=== PATIENT | female | born 1995 | race Caucasian/White ===

== ENCOUNTER 2017-10-13 10:40 | Emergency (ER) | payer OTHER ==
[~2017-10-13] VITALS: Ht 170.2 cm; Wt 77.1 kg
[~2017-10-13 10:40] MED LIST: BIRTH CONTROL; IRON325 M1 PO; PRENATAL-FOLIC1 EACH PO; TYLENOL325 MG PO; ZOFRAN ODT4 MG SL; ZOFRAN ODT8 MG PO; ZOLOFT50 MG PO
--- OUTSIDE RECORDS SUMMARY | 2017-10-13 11:39 | XMS | Clinical Summary ---
Demographics + + + | Address | [address] | | | [place] [address] | + + + | Home Phone | | + + + | Preferred Language | Unknown | + + + | Marital Status | Unknown | + + + | Scientology Affiliation | Unknown | + + + | Race | Unknown | + + + | Ethnic Group | Other Race | + + + Author + + + | Author | NON REVENUE LOCATIONS | + + + | Organization | NON REVENUE LOCATIONS | + + + | Address | Unknown | + + + | Phone | Unavailable | + + + Care Team Providers + +------+ + | Care Modeling Manager Name | Role | Phone | + +------+ + PP | Unavailable | + +------+ + Source Comments DAVID is fully live on both [facility] Ambulatory and [facility] InPatient.[facility] Allergies Not on File Current Medications Not on file Active Problems Not on file Social History + +-------+ +--------+------+ | Tobacco Use | Types | Packs/Day | Years | Date | | | | | Used | | + +-------+ +--------+------+ | Never Assessed | | | | | + +-------+ +--------+------+ + + + | Sex Assigned at | Date Recorded | | | | + + + | Not on file | | + + + Plan of Treatment + + + + + | Health Maintenance | Due Date | Last Done | Comments | + + + + + | INFLUENZA VACCINE | | | | | (FLU SHOT) | 7 | | | + + + + + Results Not on filefrom Last 3 Months"
== END 2017-10-13 13:15 | disposition home or self-care (01) ==
LOC: ED 10:40
DX: B37.3 Candidiasis of vulva and vagina (principal); L30.9 Dermatitis, unspecified; Z88.0 Allergy status to penicillin
CPT/HCPCS: 81001; 84703; 87210; 87491; 87591; 99284

== ENCOUNTER 2019-04-07 14:03 | Emergency (ER) | payer OTHER ==
[~2019-04-07] VITALS: Ht 170.2 cm; Wt 77.1 kg
--- OUTSIDE RECORDS SUMMARY | ~2019-04-07 | XMS | Clinical Summary ---
Demographics + + + | Address | [address] | | | [place] [address] | + + + | Home Phone | | + + + | Preferred Language | Unknown | + + + | Marital Status | Unknown | + + + | Hoahaoism Affiliation | Unknown | + + + [...] Team Providers + +------+ + | Care Edge Burnisher Name | Role | Phone | + +------+ + PP | Unavailable | + +------+ + Source Comments DAVID is fully live on both [facility] Ambulatory and [facility] InPatient.[facility] Allergies Not on File Medications Not on [...]
--- OUTSIDE RECORDS SUMMARY | ~2019-04-07 | XMS | Clinical Summary ---
Demographics + + + | Address | [address] | | | [place] [address] | + + + | Home Phone | | + + + | Preferred Language | Unknown | + + + | Marital Status | Unknown | + + + | Latter Day Affiliation | Unknown | + + + [...] Team Providers + +------+ + | Care Manager Photo Name | Role | Phone | + +------+ + PP | Unavailable | + +------+ + Source Comments DAVID is fully live on both [facility] Ambulatory and [facility] InPatient.[facility] Allergies Not on File Medications Not on [...]
--- OUTSIDE RECORDS SUMMARY | ~2019-04-07 | XMS | Encounter Summary ---
Demographics + + + | Address | [address] | | | [place] [address] | + + + | Home Phone | | + + + | Preferred Language | Unknown | + + + | Marital Status | Unknown | + + + | Congregational Affiliation | Unknown | + + + | Race | Unknown | + + + | Ethnic Group | Other Race | + + + Author + + + | Author | [facility] | + + + | Organization | [facility] | + + + | Address | Unknown | + + + | Phone | Unavailable | + + + Care Team Providers + +------+ + | Care Fire Crew Specialist Name | Role | Phone | + +------+ + PCP | Unavailable | + +------+ + Encounter Details +--------+ + + + + | Date | Type | Department | Care Team | Description | +--------+ + + + + | 08/01/ | Outside | Neurophysiology | Puja Fleming, | | | 2009 | Referral | EEG at [facility] [address] | DE[place]OR[place] | | | | Order | [facility] | [facility] [address] | | | | | Road Mailcode: | [address] [place], | | | | | [address] | [place] [address] | | | | | [facility] | [phone] | | | | | [place], [place] | | | | | | [address] | | | | | | [phone] | | | +--------+ + + + [...] | | | ROUTINE EEG done at [facility] History: Patient is a 14yo | | [...] | Neurophysiology - EEG [address] [facility] | | | [place] [address] | | + + + documented in this encounter Visit Diagnoses Not on filedocumented in this encounter
--- OUTSIDE RECORDS SUMMARY | ~2019-04-07 | XMS | Encounter Summary ---
Demographics + + + | Address | [address] | | | [place] [address] | + + + | Home Phone | | + + + | Preferred Language | Unknown | + + + | Marital Status | Unknown | + + + | Yazidi Affiliation | Unknown | + + + | Race | Unknown | + + + | Ethnic Group | Other Race | + + + Author + + + | Author | [facility] | + + + | Organization | [facility] | + + + | Address | Unknown | + + + | Phone | Unavailable | + + + Care Team Providers + +------+ + | Care Bath Steward Name | Role | Phone | + +------+ + PCP | Unavailable | + +------+ + Encounter Details +--------+ + + + + | Date | Type | Department | Care Team | Description | +--------+ + + + + | 08/01/ | Outside | Neurophysiology | Puja Fleming, | | | 2009 | Referral | EEG at [facility] [address] | [place] | | | | Order | [facility] | [facility] [address] | | | | | Road Mailcode: | [address] [place], | | | | | [address] | [place] [address] | | | | | [facility] | [phone] | | | | | [place], [place] | | | | | | [address] | | | | | | [phone] | | | +--------+ + + + [...] | | | ROUTINE EEG done at [facility] History: Patient is a 14yo | [...] | Neurophysiology - EEG [address] [facility] | | | [place] [address] | | + + + documented in this encounter Visit Diagnoses Not on filedocumented in this encounter
--- OUTSIDE RECORDS SUMMARY | 2019-04-07 14:06 | XMS ---
PreManage Notification: DODIE TRAMMELL Security Product Operations Associate Events No recent Security Events currently on file [facility] There are no care providers on record at this time. Noemy has no Care Guidelines for this patient. Jose VISIT COUNT (12 MO.) 1 [facility] TOTAL 1 NOTE: Visits indicate total known visits. ED/UCC VISIT TRACKING (12 MO.) 04/07/2019 14:03 [facility] [place] TYPE: Emergency COMPLAINT: - ABD PAIN INPATIENT VISIT TRACKING (12 MO.) No inpatient visits to display in this time frame [email or web address]
[2019-04-07] MEDS ORDERED: ADVIL200 MG (14:20)
== END 2019-04-07 16:27 | disposition home or self-care (01) ==
LOC: ED 14:03
DX: R10.32 Left lower quadrant pain (principal); Z88.0 Allergy status to penicillin; Z79.899 Other long term (current) drug therapy
CPT/HCPCS: 76830; 76856; 81001; 84703; 85025; 96374; 99284-25; J1885

== ENCOUNTER 2019-05-03 11:28 | Emergency (ER) | payer OTHER ==
[~2019-05-03] VITALS: Ht 167.6 cm; Wt 79.4 kg
--- OUTSIDE RECORDS SUMMARY | ~2019-05-03 | XMS | Clinical Summary ---
Demographics + + + | Address | [address] | | | [place] [address] | + + + | Home Phone | | + + + | Preferred Language | Unknown | + + + | Marital Status | Unknown | + + + | Druze Affiliation | Unknown | + + + [...] Team Providers + +------+ + | Care Associate Name | Role | Phone | + +------+ + PP | Unavailable | + +------+ + Source Comments DAVID is fully live on both [facility] Ambulatory and [facility] InPatient.[facility]] Allergies Not on File Medications Not on file Active Problems Not [...] on file | | + + + + + + + | Job Start Date | Occupation | Industry | + + + + | Not on file | Not on file | Not on file | + + + + + + + + | Travel History | Travel Start | Travel End | + + + + + + | No recent travel history available. | + + Plan of Treatment + + + + + | Health Maintenance | Due Date | Last Done | Comments | + + + + + | Influenza (Flu) | | | | | vaccination (Season | 9 | | | | Ended) | | | | + + + + + | Pneumococcal | Aged Out | | No longer eligible | | vaccination | | | based on patient's | | | | | age to complete this | | | | | topic | + + + + + Results Not on filefrom Last 3 Months"
--- OUTSIDE RECORDS SUMMARY | ~2019-05-03 | XMS | Encounter Summary ---
Demographics + + + | Address | [address] | | | [place] [address] | + + + | Home Phone | | + + + | Preferred Language | Unknown | + + + | Marital Status | Unknown | + + + | Oriental Orthodox Affiliation | Unknown | + + + | Race | Unknown | + + + | Ethnic Group | Other Race | + + + Author + + + | Author | [facility] | + + + | Organization | [facility] | + + + | Address | Unknown | + + + | Phone | Unavailable | + + + Care Team Providers + +------+ + | Care Getter Operator Name | Role | Phone | + +------+ + PCP | Unavailable | + +------+ + Encounter Details +--------+ + + + + | Date | Type | Department | Care Team | Description | +--------+ + + + + | 08/01/ | Outside | Neurophysiology | Puja Fleming, | | | 2009 | Referral | EEG at [facility] [address] | [place] | | | | Order | [facility] | [facility] [address] | | | | | Road Mailcode: | [address] [place], | | | | | [address] | [place] [address] | | | | | [facility] | [phone] | | | | | [place], [place] | | | | | | [address] | | | | | | [phone] | | | +--------+ + + + + Social History + +-------+ +--------+------+ | Tobacco [...] recent travel history available. | + + documented as of this encounter Plan of Treatment Not on filedocumented as of this encounter Procedures + +--------+ + + + | Procedure Name | Priori | Date/Time | Associated Diagnosis | Comments | | | ty | | | | + +--------+ + + + | EEG ROUTINE, PEDS | Routin | 08/01/2010 | | Results for this | | | e | | | procedure are in the | | | | | | results section. | + +--------+ + + + documented in this encounter Results EEG ROUTINE, PEDS (08/01/2010) + + | Specimen | + + | | + + + + + | Narrative | Performed At | + + + | Patient Name: Fish Larson Date of : 1995 | | | Date of Test: 08/01/2010 | | | ROUTINE EEG done at [facility] History: Patient is a 14yo | | | female with history of "black out" spells for many years, now | | | worsening. EEG is performed to evaluate for evidence of seizure | | | activity. Conditions of recording: With the patient awake, an | | | EEG was recorded using 32 channels in a digital acquisition system. | | | Electrodes were placed according to the international 10-20 | | | system. The recording was technically satisfactory. Description | | | of recording: During the best awake state, a symmetric and reactive | | | 10 Hz posterior dominant rhythm of moderate amplitude is | | | seen. Lower amplitude faster frequencies are present symmetrically | | | in the anterior head regions. Hyperventilation and photic | | | stimulation did not induce any significant changes in the EEG. | | | Sleep was not reached in this recording. No focal abnormalities or | | | epileptiform discharges were seen. Impression: This is a | | | normal EEG with the patient awake. Comment: A normal EEG does | | | not rule out a clinical seizure disorder. If clinical suspicion | | | for epilepsy is high, a repeat EEG after sleep deprivation is | | | recommended. Clinical correlation is advised. ELENA MONSON MD | | | Neurophysiology - EEG [address] [facility] | | | [place] [address] | | + + + documented in this encounter Visit Diagnoses Not on filedocumented in this encounter
--- OUTSIDE RECORDS SUMMARY | ~2019-05-03 | XMS | Encounter Summary ---
Demographics + + + | Address | [address] | | | [place] [address] | + + + | Home Phone | | + + + | Preferred Language | Unknown | + + + | Marital Status | Unknown | + + + | Yazdanism Affiliation | Unknown | + + + | Race | Unknown | + + + | Ethnic Group | Other Race | + + + Author + + + | Author | [facility] | + + + | Organization | [facility] | + + + | Address | Unknown | + + + | Phone | Unavailable | + + + Care Team Providers + +------+ + | Care Delicatessen Manager Name | Role | Phone | + +------+ + PCP | Unavailable | + +------+ + Encounter Details +--------+ + + + + | Date | Type | Department | Care Team | Description | +--------+ + + + + | 08/01/ | Outside | Neurophysiology | Puja Fleming, | | | 2009 | Referral | EEG at [facility] [address] | [place] | | | | Order | [facility] | [facility] [address] | | | | | Road Mailcode: | [address] [place], | | | | | [address] | [place] [address] | | | | | [facility] | [phone] | | | | | [place], [place] | | | | | | [address] | | | | | | [phone] | | | +--------+ + + + [...] | | | ROUTINE EEG done at [facility] History: Patient is a 14yo | [...] | Neurophysiology - EEG [address] [facility] | | | [place] [address] | | + + + documented in this encounter Visit Diagnoses Not on filedocumented in this encounter
--- OUTSIDE RECORDS SUMMARY | ~2019-05-03 | XMS | Clinical Summary ---
Demographics + + + | Address | [address] | | | [place] [address] | + + + | Home Phone | | + + + | Preferred Language | Unknown | + + + | Marital Status | Unknown | + + + | Confucianist Affiliation | Unknown | + + + [...] Team Providers + +------+ + | Care Quartz Miner Name | Role | Phone | + +------+ + PP | Unavailable | + +------+ + Source Comments DAVID is fully live on both [facility] Ambulatory and [facility] InPatient.[facility] & [facility] Allergies Not on File Medications Not on [...]
[~2019-05-03 11:28] MED LIST changes: +ADVIL200 MG
--- OUTSIDE RECORDS SUMMARY | 2019-05-03 11:32 | XMS ---
PreManage Notification: DODIE TRAMMELL Security Nuclear Physician Events No recent Security Events currently on file CRITERIA MET - [facility] - Has Care Guidelines - PDMP - [facility] - 2 Visits in 30 Days CARE PROVIDERS There are no care providers on record at this time. Noemy has no Care Guidelines for this patient. Care History Medical/Surgical 04/12/2019 [facility] [place] CASE MANAGEMENT REFERRAL MADE- HELP PATIENT WITH PCP SET UP. E.D. VISIT COUNT (12 MO.) 2 [facility] H. TOTAL 2 NOTE: Visits indicate total known visits. ED/UCC VISIT TRACKING (12 MO.) 05/03/2019 11:29 [facility] [place] TYPE: Emergency COMPLAINT: - PREVIOUS CHEST PAIN/SOB 04/07/2019 14:03 [facility] [place] TYPE: Emergency COMPLAINT: - ABD PAIN DIAGNOSES: - Other ocean transportation intermediary (current) drug therapy - Left lower quadrant pain - Allergy status to penicillin INPATIENT VISIT TRACKING (12 MO.) No inpatient visits to display in this time frame [email or web address]
[2019-05-03] MEDS ORDERED: CLEOCIN HCL300 MG PO (11:38)
[2019-05-03] MEDS ORDERED: IBUPROFEN600 MG PO (11:39)
[2019-05-03] MEDS ORDERED: NORCO 5-325 TA1 EACH PO (11:39)
--- NOTE | 2019-05-04 07:40 | EKG ---
[facility] [address] [facility] [place] [address] Signed Normal sinus rhythm with sinus arrhythmia Incomplete right bundle branch block Borderline ECG No previous ECGs available Confirmed by JANIE SORENSEN MD ([id number]) on 05/04/2019 7:40:23 AM Electronically Signed By: JANIE SORENSEN MD 05/04/19 0740 PATIENT NAME: VALERIDODIE Centeno Electrocardiogram DATE OF : [birth year] PHYSICIAN: JANIE SORENSEN MD REPORT #: [id number] REPORT IS CONFIDENTIAL AND NOT TO BE RELEASED WITHOUT AUTHORIZATION
== END 2019-05-03 14:20 | disposition left against medical advice (07) ==
LOC: ED 11:28
DX: R07.9 Chest pain, unspecified (principal); Z87.891 Personal history of nicotine dependence; Z88.0 Allergy status to penicillin
CPT/HCPCS: 71045; 93005; 93010; 99285-25

== ENCOUNTER 2020-05-13 18:05 | Emergency (ER) | payer OTHER ==
[~2020-05-13] VITALS: Ht 167.6 cm; Wt 79.4 kg
[~2020-05-13 18:05] MED LIST changes: +CLEOCIN HCL300 MG PO; +IBUPROFEN600 MG PO; +NORCO 5-325 TA1 EACH PO; +ZITHROMAX250 MG PO; +ZOFRAN4 MG PO
--- OUTSIDE RECORDS SUMMARY | 2020-05-13 18:08 | XMS ---
PreManage Notification: DODIE TRAMMELL Security Roadway Designer Events 1 event(s) in the past 18 months Most recent security events: Elopement at [facility] 05/03/2019 11:29 - Other Details: PATIENT LEFT AMA. CRITERIA MET - Group Notification - [facility] - Has Care Guidelines - PDMP CARE PROVIDERS There are no care providers on record at this time. Noemy has no Care Guidelines for this patient. Care History Medical/Surgical 07/19/2019 [facility] Care Recommendation: - Patient DOES NOT have a PCP. - Please refer patient to [facility] [facility]: [address] [place] [address] 9, [place] [address] This patient has had 5 or more Emergency Department visits in the last 12 months.\T\nbsp; Patient requires education on the scope and purpose of the ED as an acute care provider not a Primary Care Provider and should not be utilized for chronic conditions.\T\nbsp; If patient returns to ED please contact Community Health WorkerMilady at [phone]. These are guidelines and the provider should exercise clinical judgment when providing care. 04/12/2019 [facility] - [place] CASE MANAGEMENT REFERRAL MADE- HELP PATIENT WITH PCP SET UP. E.D. VISIT COUNT (12 MO.) 3 [facility]. TOTAL 3 NOTE: Visits indicate total known visits. ED/UCC VISIT TRACKING (12 MO.) 05/13/2020 18:05 [facility] [place] TYPE: Emergency COMPLAINT: - URINE PROBLEM 07/17/2019 09:21 [facility] [place] TYPE: Emergency COMPLAINT: - VOMITING/DIARRHEA DIAGNOSES: - Diarrhea, unspecified - Vomiting, unspecified - Allergy status to penicillin - Personal history of nicotine dependence 07/03/2019 15:14 [facility] [place] TYPE: Emergency COMPLAINT: - SORE THROAT/L EAR PAIN DIAGNOSES: - Otitis media, unspecified, left ear - Allergy status to penicillin - Acute pharyngitis, unspecified INPATIENT VISIT TRACKING (12 MO.) No inpatient visits to display in this time frame [email or web address]
[2020-05-13] MEDS ORDERED: KEFLEX500 MG PO (19:17)
[2020-05-13] MEDS ORDERED: PYRIDIUM200 MG PO (19:17)
== END 2020-05-13 19:34 | disposition home or self-care (01) ==
LOC: ED 18:05
DX: R35.0 Frequency of micturition (principal); R30.0 Dysuria; Z87.891 Personal history of nicotine dependence; Z88.0 Allergy status to penicillin
CPT/HCPCS: 81001; 87088; 99283